=== PATIENT | female | born 1990 | race Two or more races ===

== ENCOUNTER 2025-03-13 23:01 | Emergency (ER) | payer MEDICAID, SELFPAY ==
[2025-03-13 23:03] VITALS: BMI 35.4
[2025-03-13 23:13] VITALS: BP 141/83; PULSE 87; RESP 18; TEMP 37.1; O2SAT 98
--- NOTE | 2025-03-13 23:18 | XR_ITS ---
Examination: OB Transvaginal ultrasound of the pelvis, complete Technique: Transvaginal sonographic images pelvis performed using toussaint scale imaging Exam date and time: March 14, 2025 0115 hours INDICATIONS: Pelvic cramping beginning 2 days ago FINDINGS: Uterus 10.9 cm, intrauterine gestational sac 0.8 cm corresponds to 5 weeks 4 days gestational age No pole, no cardiac activity Right ovary 5.7 cm total flow, 2 simple cysts, the largest 31 mm Left ovary 3.4 cm arterial flow 22 mm cyst IMPRESSION: Empty intrauterine gestational sac corresponding to 5 weeks 4 days gestational age, recommend short term follow-up transvaginal pelvic sonography to confirm viability
[2025-03-13 23:46] LABS: Collection Type, Urine Clean Catch
[2025-03-13 23:49] LABS: Basophils % (Auto) 0 % (0-2.5); Eosinophils # (Auto) 0.2 Thou/mm3 (0.0-0.5); Eosinophils % (Auto) 2 % (0-10); Hematocrit 31.3 % (36.0-46.0); Hemoglobin 11.4 g/dL (12.0-16.0); Immature Granulocytes % (Auto) 0 % (0-0); Immature Granulocytes Auto 0.04 Thou/mm3 (0.00-0.00); Lymphocytes % (Auto) 32 % (10-50); Mean Corpuscular HGB Conc 36.4 g/dl (31.0-37.0); Mean Corpuscular Hemoglobin 31.8 pg (25.0-35.0); Mean Corpuscular Volume 87 fL (80-100); Monocytes # (Auto) 0.7 Thou/mm3 (0.0-0.8); Monocytes % (Auto) 7 % (0-12); Neutrophils # (Auto) 5.6 Thou/mm3 (1.8-7.7); Neutrophils % (Auto) 59 % (37-80); Nucleated Red Blood Cell % 0 /100 WBC (0); Platelet Count 308 Thou/mm3 (140-440); RDW Standard Deviation 39.8 fL (36.4-46.3); Red Blood Count 3.59 Miln/mm3 (4.00-5.20); White Blood Count 9.5 Thou/mm3 (3.6-11.0)
[2025-03-14 00:11] LABS: Alanine Aminotransferase 27 U/L (10-49); Albumin, Serum 4.4 gm/dL (3.5-5.0); Albumin/Globulin Ratio 1.5 (1.2-2.2); Alkaline Phosphatase 53 U/L (46-116); Anion Gap 9 (7-16); Aspartate Amino Transferase 17 U/L (0-34); BUN/Creatinine Ratio 13 Ratio (12-20); Bilirubin,Total 0.3 mg/dL (0.3-1.2); Blood Urea Nitrogen 9 mg/dL (9-23); Calcium 9.2 mg/dL (8.3-10.6); Calcium (Corrected) 9.2 mg/dL (8.5-10.1); Carbon Dioxide 24.1 mMol/L (20.0-31.0); Chloride 104 mMol/L (98-107); Creatinine (Component) 0.7 mg/dL (0.6-1.3); Estimated Creatinine Clearance 122.2 mL/min (>60); Globulin 2.9 gm/dL (2.3-3.5); Glucose 85 mg/dL (74-106); Osmolality,Calculated 271 (275-295); Potassium 4.3 mMol/L (3.4-5.1); Sodium 137 mMol/L (136-145); Total Protein 7.3 gm/dL (5.7-8.2); eGFR > 60 See Note
[2025-03-14 00:14] LABS: Bacteria,Urine 1+; Bilirubin,Urine Negative (Negative); Blood,Urine 1+ (Negative); Clarity,Urine Clear (Clear/Hazy); Color,Urine Lt-Yellow (Lt Yel-Yel); Glucose, Urine Negative (Negative); Ketones,Urine Negative (Negative); Leukocyte Esterase,Urine Positive (Negative); Nitrite,Urine Negative (Negative); Protein,Urine 1+ (Neg - Trace); RBC,Urine 1 /hpf (0-3); Specific Gravity,Urine 1.013 (1.001-1.035); Squamous Epithelial Cell,Urine 6 /hpf (0-5); Urobilinogen,Urine Negative mg/dL (0.0-1.0); WBC,Urine 17 /hpf (0-5)
[2025-03-14 00:54] LABS: Beta HCG,Quantitative 9731 mIU/mL (<5.0)
--- NOTE | 2025-03-14 03:49 | PRELIM_ITS ---
Obstetric ultrasound (transabdominal and transvaginal). March 14, 2025 at 0115 hours Clinical history: Cramping, no bleed; approximately 5 weeks. Technique: Real-time ultrasound was performed using Duplex scanning including arterial inflow, venous outflow, color and spectral Doppler analysis of both ovaries. Comparison: No prior study is available for comparison. Findings: There is an intrauterine gestation sac. No pole or yolk sac is visualized at this time. The mean gestational age is 5 weeks and 4 days (MSD = 0.81 cm). The uterus measures 10.9 x 7.6 x 8.1 cm. The right ovary measures 5.7 x 3.6 x 4.8 cm and contains two large anechoic cysts, the larger measuring 3.1 x 2.6 x 2.6 cm. The left ovary measures 3.3 x 3.4 x 2.9 cm and contains an anechoic cyst measuring 2.2 x 1.9 x 2.2 cm. Both ovaries demonstrate color flow and spectral waveforms on Doppler evaluation. There is no free fluid in the pelvis. Impression: Intrauterine gestation sac without yolk sac or pole. Findings may represent an early intrauterine . Recommend correlation with quantitative beta hCG and close sonographic follow-up. Bilateral ovarian cysts. No sonographic evidence of ovarian torsion is demonstrated on the submitted images. Report Electronically Signed By: John Taveras 03/14/2025 3:47:30 AM [EST]
[2025-03-14 03:53] VITALS: BP 147/83; PULSE 83; RESP 17; TEMP 36.7; O2SAT 100
--- NOTE | 2025-03-14 04:14 | EDNOTE_ITS ---
<Statement entered by Bethany Hylton MD - 03/14/25 05:22> As co-signing physician, I was present and available for consult prn. I concur with the plan and care as documented by the midlevel provider. ED Female Urogenital RME/HPI General Chief complaint: Abdominal Pain Stated complaint: ABD PAIN AND LMP 01/31/25 Time Seen by Provider: 03/13/25 23:17 Arrival date/time: 03/13/25 23:01 35F with no significant PMH presents to ED with 2 days of pelvic cramping, but denies vaginal bleeding and dysuria. Patient is about 5 weeks . Limitations: no limitations Related Data Previous Rx's ?Medication ?Instructions ?Recorded cephalexin 500 mg capsule 500 mg PO BID 7 days #14 cap s 03/14/25 Allergies Allergy/AdvReac Type Severity Reaction Status Date / Time No Known Allergies Allergy Verified 03/13/25 23:03 Review of Systems Review of Systems Systems Reviewed: All systems reviewed, normal except as documented Constitutional Constitutional: Reports system reviewed and no additional complaints, except as documented, Denies fever(s) and Denies headache(s) ENT Ears, Nose, Mouth, and Throat: Denies disequilibrium and Denies headache(s) Cardiovascular Cardiovascular: Reports system reviewed and no additional complaints, except as documented, Denies chest pain and Denies dyspnea Respiratory Respiratory: Reports system reviewed and no additional complaints, except as documented, Denies cough and Denies dyspnea Gastrointestinal Gastrointestinal: Reports system reviewed and no additional complaints, except as documented, Denies abdominal pain, Denies nausea and Denies vomiting Genitourinary Genitourinary: Reports as per HPI and Reports pelvic pain (cramping) Neurologic Neurologic: Reports system reviewed and no additional complaints, except as documented, Denies confusion, Denies disequilibrium and Denies headache(s) Psychiatric Psychiatric: Denies confusion Past Medical History Social History SMOKING STATUS: Never smoker ED Exam General Limitations: Present no limitations General appearance: Present alert and in no apparent distress Head Head exam: Present atraumatic Eye Eye exam: Present normal appearance, PERRL and EOMI ENT ENT exam: Present normal exam, normal oropharynx and mucous membranes moist Neck Neck exam: Present normal inspection, full ROM and trachea midline Chest Chest inspection: Present normal inspection and symmetric chest wall rise Respiratory Respiratory exam: Present normal lung sounds bilaterally Cardiovascular Cardiovascular exam: Present regular rate, normal rhythm and normal heart sounds Abdominal Exam Abdominal exam: Present soft and normal bowel sounds Extremities Exam Extremities exam: Present normal inspection and full ROM Back Exam Back exam: Present normal inspection and full ROM Neurological Exam Neurological exam: Present alert, oriented X3 and CN II-XII intact Psychiatric Psychiatric exam: Present normal affect and normal mood Skin Skin exam: Present warm, dry, intact and normal color Course Quality Measures none Orders Category Date Time Status US OB transvaginal Stat Exams 03/13/25 23:18 Taken Beta HCG,Quantitative Stat Lab 03/13/25 23:36 Completed CBC Stat Lab 03/13/25 23:36 Completed CMP [Comprehensive Metabolic Panel] Stat Lab 03/13/25 23:36 Completed UA [Urinalysis] Stat Lab 03/13/25 23:37 Completed Urine Culture Stat Lab 03/13/25 23:37 Received Vital Signs Vital signs: Vital Signs Temperature 98.8 F 03/13/25 23:13 Pulse Rate 87 03/13/25 23:13 Respiratory Rate 18 03/13/25 23:13 Blood Pressure 141/83 H 03/13/25 23:13 Pulse Oximetry (%) 98 03/13/25 23:13 Oxygen Delivery Method Room Air 03/13/25 23:13 O2 at 98% on RA and WNLs Urogenital - Female MDM Narrative MDM Narrative:: 35F with no significant PMH presents to ED with 2 days of pelvic cramping, but denies vaginal bleeding and dysuria. Patient is about 5 weeks . Physical exam reveals well-appearing female. Patient is afebrile, calm, and alert. US reveals IU gestation, but no FHR. Beta HCG WNLs. CBC and CMP unremarkable. UA contaminated, but will treat given and pelvic pain. 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 Patient data External records reviewed:: None Clinical information provided by:: patient Social determinants that could affect healthcare access:: none Patient has the following chronic illnesses:: none How is presenting disease/condition affected by chronic disease/condition?: no chronic disease Evaluation data The following diagnostics were reviewed and interpreted by me:: lab results and radiology exam(s) Lab and/or radiology exams considered but not ordered:: ordered Interpretation Summary: above Medications / Prescriptions Medications or Prescriptions considered but not ordered:: not ordered Medication administrations:: n/a Consultations Consultation(s) initiated? (list below): No Diagnosis Urogenital Female Differential Diagnosis: urinary tract infection, bacterial vaginosis, trichomoniasis, cervicitis, ovarian cyst, vaginitis, ruptured ovarian cyst, cyst of Bartholin's gland, cystitis, dysmenorrhea and other (miscarriage, pelvic pain ) Most likely diagnosis given after review of the tests above:: pelvic pain Admission Indicated Admission indicated?: not indicated Admission Request Was there a request for admission?: No Disposition Plan Disposition Plan: Discharge Discharge Attestation Discharge Attestation: The patient and all family members were given an opportunity to ask questions and understood the discharge instructions. Discharge instructions specifically effects, indications for sooner follow up or return to the emergency department, and the expected course of current diagnosis. Patient condition: Stable Discharge Plan Plan Patient Disposition: HOME (Self Care) Discharge Disposition comment: Stable Prescriptions/Referrals Prescriptions/Med Rec: New cephalexin 500 mg capsule 500 mg PO BID 7 Days Qty: 14 0RF Referrals: Layla Panda PA-C [Primary Care Provider] - In 1 week Problem List Clinical Impression: Pelvic pain Patient/Caregiver Discharge Instructions Education Materials: ED Pelvic Pain, Unknown Cause Additional Instructions: Please follow-up with PCP/OBGYN within 24-48 hours and return immediately if symptoms worsen. Recommend repeat HCG +/- US in 48-72 hours to see trend. Print Language: [place] Islander Stand Alone Forms: Patient Portal Info Letter DAHLIA/MAIK Supervising Physician VIKTORIYA Supervising Physician: Dr. Hylton
== END 2025-03-14 03:58 | disposition home or self-care (01) ==
PROVIDERS: Physician Assistant; Emergency Provider Emergency Medicine; PCP Specialist
DX: O26.891 Other specified pregnancy related conditions, first trimester (principal); R10.2 Pelvic and perineal pain; Z3A.01 Less than 8 weeks gestation of pregnancy
CPT/HCPCS: 36415; 76817; 80053; 81001; 84702; 85025; 87086; 99284

== ENCOUNTER 2025-08-04 21:45 | Emergency (ER) | payer MEDICAID, SELFPAY ==
[2025-08-04 21:46] VITALS: BMI 37.2
[2025-08-04 22:13] VITALS: BP 171/101; PULSE 79; RESP 20; TEMP 37.1; O2SAT 99
--- NOTE | 2025-08-04 23:01 | PD.EDDENTL ---
ED Dental RME/HPI General Chief complaint: Dental/Oral/Throat Stated complaint: DENTAL PAIN Time Seen by Provider: 08/04/25 22:02 Source: patient, RN notes reviewed and old records reviewed Arrival date/time: 08/04/25 21:45 Mode of arrival: ambulatory Limitations: no limitations RME / HPI RME / HPI Narrative: 35yof presents to ED for left upper toothache x3-4 days. No fever or facial swelling reported. Patient has taken Tylenol with mild relief. Patient is 26 weeks OB. Reports good movement, no pelvic pain or vaginal bleeding. Patient has elevated blood pressure in ED. She reports she forgot to take her labetalol today. No headache, vision changes or abdominal pain reported. Related Data Previous Rx's ?Medication ?Instructions ?Recorded acetaminophen 500 mg tablet 1,000 mg (2 x 500 mg) PO Q6H PRN 08/05/25 (Tylenol Extra Strength) pain #30 tabs amoxicillin 875 mg tablet 875 mg PO BID 10 days #20 tabs 08/05/25 chlorhexidine gluconate 0.12 % 15 ml buccal BID #300 mL 08/05/25 mouthwash (Peridex) Allergies Allergy/AdvReac Type Severity Reaction Status Date / Time No Known Allergies Allergy Verified 08/04/25 21:45 Review of Systems Review of Systems Systems Reviewed: All systems reviewed, normal except as documented Constitutional Constitutional: Denies chills, Denies fever(s) and Denies headache(s) Eyes Eyes: Denies blurry vision and Denies loss of vision ENT Ears, Nose, Mouth, and Throat: Reports dental pain, Denies dizziness and Denies headache(s) Cardiovascular Cardiovascular: Denies chest pain and Denies dyspnea Respiratory Respiratory: Denies dyspnea Gastrointestinal Gastrointestinal: Denies nausea and Denies vomiting Neurologic Neurologic: Denies dizziness, Denies headache(s) and Denies loss of vision Past Medical History Past Medical History CARDIAC: Positive Hypertension GASTROINTESTINAL: Positive Obesity ENDOCRINE: Positive Diabetes Mellitus Type 2 Surgical History OTHER SURGICAL HX: denies pshx ED Exam General Limitations: Present no limitations General appearance: Present alert and in no apparent distress Head Head exam: Present atraumatic and normocephalic Eye Eye exam: Present normal appearance, PERRL and EOMI ENT ENT exam: Present normal oropharynx, mucous membranes moist and other (Generalized dental caries. Fractured left upper first molar. No gingival erythema/swelling. No facial swelling or trismus) Neck Neck exam: Present normal inspection and full ROM; Absent meningismus Chest Chest inspection: Present normal inspection and symmetric chest wall rise Respiratory Respiratory exam: Present normal lung sounds bilaterally; Absent respiratory distress Cardiovascular Cardiovascular exam: Present regular rate and normal rhythm Extremities Exam Extremities exam: Present normal inspection and full ROM Neurological Exam Neurological exam: Present alert and oriented X3 Psychiatric Psychiatric exam: Present normal affect and normal mood Skin Skin exam: Present warm, dry, intact and normal color Course Quality Measures none Orders Category Date Time Status HYDROcodone/APAP 10/325 [[place] 10/325] Med 08/04/25 23:01 Discontinued 1 tab PO X1 ONE Labetalol Tab [Trandate Tab] Med 08/04/25 23:29 Discontinued 200 mg PO X1 ONE Vital Signs Vital signs: Vital Signs Temperature 98.8 F 08/04/25 22:13 Pulse Rate 79 08/04/25 22:13 Respiratory Rate 20 08/04/25 22:13 Blood Pressure 171/101 H 08/04/25 22:13 Pulse Oximetry (%) 99 08/04/25 22:13 Oxygen Delivery Method Room Air 08/04/25 22:13 Dental / Oral MDM Narrative MDM Narrative:: 35yof presents to ED for left upper toothache x3-4 days. No fever or facial swelling reported. Patient has taken Tylenol with mild relief. Patient is 26 weeks OB. Reports good movement, no pelvic pain or vaginal bleeding. Patient has elevated blood pressure in ED. She reports she forgot to take her labetalol today. No headache, vision changes or abdominal pain reported. Will treat for dental pain and possible dental infection. Recheck of blood pressure is downtrending after pain medication and labetalol. Suspect BP elevation mostly related to toothache. Patient states her BPs are typically well-controlled. Instructed patient to take another 100mg labetalol when she gets home. Patient has follow-up with her OB, Dr. Donald, later today. Patient denies headache, dizziness, vision changes or nausea/vomiting. Discussed the dangers of high blood pressure during . Encouraged compliance with meds. Stable for discharge, RTED precautions given. Patient data External records reviewed:: [facility] previous records (03/14/25 ED visit for pelvic pain) Clinical information provided by:: patient Social determinants that could affect healthcare access:: other (specify) (Unemployment) Patient has the following chronic illnesses:: Obesity, hypertension How is presenting disease/condition affected by chronic disease/condition?: exacerbated by Evaluation data The following diagnostics were reviewed and interpreted by me:: other (specify) (None) Lab and/or radiology exams considered but not ordered:: None Interpretation Summary: na Medications / Prescriptions Medications or Prescriptions considered but not ordered:: None Medication administrations:: Medication Administration History Discontinued Medications Hydrocodone Bitart/Acetaminophen (Hydrocodone/Apap 10/325 Tab) 1 tab PO X1 ONE Stop: 08/04/25 23:02 Last Admin: 08/04/25 23:17 Dose: 1 tab Documented By: YANETH Labetalol HCl (Labetalol 100 Mg Tablet) 200 mg PO X1 ONE Stop: 08/04/25 23:30 Last Admin: 08/04/25 23:39 Dose: 200 mg Documented By: BRAD Above medications administered in ED Consultations Consultation(s) initiated? (list below): No Diagnosis Dental Differential Diagnosis: gingival abscess, dental caries, toothache, dental abscess and fracture of tooth Most likely diagnosis given after review of the tests above:: Dental pain, dental caries Admission Indicated Admission indicated?: not indicated Admission Request Was there a request for admission?: No Disposition Plan Disposition Plan: Discharge Discharge Attestation Discharge Attestation: The patient and all family members were given an opportunity to ask questions and understood the discharge instructions. Discharge instructions specifically effects, indications for sooner follow up or return to the emergency department, and the expected course of current diagnosis. Patient condition: Stable Discharge Plan Plan Patient Disposition: HOME (Self Care) Patient condition on transfer: Stable Prescriptions/Referrals Prescriptions/Med Rec: New acetaminophen [Tylenol Extra Strength] 500 mg tablet 1,000 mg PO Q6H PRN (Reason: pain) Qty: 30 0RF amoxicillin 875 mg tablet 875 mg PO BID 10 Days Qty: 20 0RF chlorhexidine gluconate [Peridex] 0.12 % mouthwash 15 ml buccal BID Qty: 300 0RF Referrals: Layla Panda PA-C [Primary Care Provider] - In 1 week Problem List Clinical Impression: Toothache, Elevated blood pressure reading Patient/Caregiver Discharge Instructions Education Materials: ED Dental Pain Print Language: Azeri Stand Alone Forms: Mackenzie Award Info., Patient Portal Info Letter PA/THIRD LOADER Supervising Physician DAHLIA/THIRD LOADER Supervising Physician: Jeb
[2025-08-04 23:19] VITALS: BP 165/105; PULSE 76; RESP 18; TEMP 36.7; O2SAT 99
[2025-08-04 23:39] VITALS: BP 182/105; PULSE 85
[2025-08-04] MEDS: LABETALOL 100 MG TABLET 200 MG PO (23:39)
[2025-08-05 01:01] VITALS: BP 164/93; PULSE 84; RESP 18; O2SAT 97
== END 2025-08-05 01:12 | disposition home or self-care (01) ==
PROVIDERS: Emergency Provider Emergency Medicine; PCP Specialist
DX: K08.89 Other specified disorders of teeth and supporting structures (principal); R03.0 Elevated blood-pressure reading, without diagnosis of hypertension
CPT/HCPCS: 99282; A9270

== ENCOUNTER 2025-09-29 08:14 | Outpatient (AMB) | payer MEDICAID, SELFPAY ==
--- NOTE | 2025-09-29 08:44 | OBCLNT_ITS ---
Vital Signs 09/29/25 08:45 Height 1.6 m Height Method Stated Weight 96.729 kg Weight Measurement Method Standing Scale BMI 37.8 BP 129/84 Blood Pressure Source Automatic Cuff Blood Pressure Location Left Upper Arm Position Sitting Respiration 16 Pulse 76 Pulse Source Monitor Temp 97.8 F Temp Source Oral Pulse Oximetry (%) 98 Oxygen Delivery Method Room Air Allergies/Home Meds Allergies & Medications Allergies No Known Allergies Allergy (Verified 09/29/25 08:56) Medication Reconciliation aspirin 81 mg tablet 81 mg PO QDAY 09/29/25 [History Confirmed 09/29/25] insulin glargine 100 unit/mL subcutaneous solution (Lantus U-100 Insulin) 20 unit subcut QDAY 09/29/25 [History Confirmed 09/29/25] insulin lispro 100 unit/mL subcutaneous pen (Humalog KwikPen (U-100) Insulin) 5 unit subcut TID 09/29/25 [History Confirmed 09/29/25] labetalol 100 mg tablet 100 mg PO BID 09/29/25 [History Confirmed 09/29/25] metformin 500 mg tablet 500 mg PO BID 09/29/25 [History Confirmed 09/29/25] Intake Visit Data Collection New Patient or Established: Established Patient (seen at [facility] within 3 years) Reason for Visit:: TRANSFER/ INITIAL CARE Seen by Clinical Staff ONLY (RN/MA): No Isotope Hydrologist Required: No Do You Feel Safe at Home: Yes Authorities Contacted: N/A PCP or OBGYN visit in last 3 months: Yes Hx Now: Yes Are you currently on any form of Control: No Last menstrual period: 01/31/25 Pain Present Currently: No Pain Scale Used: Rodriguez-Rincon/Numerical Pain scale:: 0 Smoking Status Smoking Status: Never smoker Immunizations Flu Vaccine in the Last 12 Months: Yes Flu Vaccine Exclusion Criteria: Already Received Questionnaires Covid-19 Vaccine Questionnaire Has patient been vacinated for Covid-19 Have you been vacinated for Covid-19: Yes PHQ-9 PHQ-2 Over the last 2 weeks, how often have you been bothered by any of the following problems? 1. Little interest or pleasure in doing things: not at all 2. Feeling down, depressed, or hopeless: not at all Total score: 0 PHQ-9 3. Trouble falling or staying asleep, or sleeping too much: Not at all 4. Feeling tired or having little energy: Not at all 5. Poor appetite or overeating: Not at all 6. Feeling bad about yourself - or that you are a failure or have let yourself or your family down: Not at all 7. Trouble concentrating on things, such as reading the newspaper or watching television: Not at all 8. Moving or speaking so slowly that other people could have noticed? - Or the opposite - being so fidgety or restless that you have been moving around a lot more than usual: not at all 9. Thoughts that you would be better off or of hurting yourself in some way: Not at all Total score: 0 Source: Developed by Drs. Thiago Hartman, Maira Garcia, Rogelio Mccray and colleagues, with an educational leobardo from [employer]. Depression screen completed yes Social History Living Situation History Marital Status: Lives With: Family Housing: House Tobacco History Smoking Status: Never smoker Second Hand Smoke Exposure: No Alcohol History Alcohol Intake: Never Domestic Abuse History Do You Feel Safe at Home: Yes History of Present Illness HPI Narrative 35-year-old 1 para 0 for OB. Patient is a transfer from Dr. Urbina's office with records. Last. January 31, 2025. Estimated due date based on LMP November 07, 2025. Patient had an ultrasound May 20, 2025. She was 16 weeks at that time and that had an EDC of November 03, 2025. So patient's EDC by LMP is more correct putting her due November 07, 2025. Patient also had several anatomy scans and a echo at [facility]. First ultrasound was at 24 weeks 6 days. And that was July 24, 2025. So this confirm dates and showed the baby was growing in the 28th percentile. Anatomy was normal. Patient had a echo because of diabetes and that was August 13 and the echo was read as a normal echo and no cardiac arrhythmias shown. And then patient's last ultrasound was August 28 and that 1 was at 29 weeks 6 that showed normal growth and 26 percentile and normal LAKSHMI. The last ultrasound for this patient was September 25. Patient was 33 weeks 6 days on that date and showed good growth at 33 percentile with normal LAKSHMI. Patient denies any social habits. Denies surgeries. She has a history of hypertension and she is taking labetalol 100 mg p.o. 3 times daily for that. She also has anemia and she is ta [facility]. Patient has type 2 diabetes and she is on insulin. Denies leaking, bleeding, contractions. Patient states that her A1c is are stable. The majority of her fasting A1c's have been under 100. She does have elevated A1c's about 7-8 times per month where the A1c is after eating or over 190. 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 Patient is a transfer from Dr. Urbina's office with records. Patient has a history of hypertension on labetalol 100 3 times daily. And she also has type 2 diabetes. She uses insulin to control her sugars. She is using 12 units after each meal. And then she has a longer acting that she is taking 45 units each night before bed. She reports that she is trying to keep her sugars under control with diet and her insulin. The fasting blood sugars she said are usually below 100 but she does have fastings that are over 100 as well. And then her postprandial sugars after meals about 75% are at goal. Reports movement. Denies contractions. Denies leaking. Denies bleeding. And fetus is active Discussed preter m labor precautions and kick count twice a day. I reviewed again GDM diet with patient importance of complying. I talked her about walking 40 minutes a day and 10 minutes after each meal. She is to continue her prenatals and her iron. We discussed iron foods with the patient. And I talked about her sugars. To continue logging them and and bring them with her to her next appointment. Continue her insulin as directed. We scheduled a bibiweekly NST BPP's. Patient scheduled with OB for management bi weekly Menstrual History Menstrual reliability: definite Flow: normal Menstrual regularity: irregular Monthly: No Age at menarche: 14 On control pills at conception: No Associated symptoms (LMP): Denies amenorrhea, nausea, vomiting, fatigue, breast tenderness, urinary frequency, irritability, bloating or other OB History : 1 # of Living Children: 0 Infection History & Risk Evaluation History of STDs: [place]lamydia ([place] 2019) Genetic Screening & History Genetic Screening/Teratology Counseling - Includes patient, baby's father, or anyone in either family with: 1. Patient's age 35 years or older as of estimated date of delivery: No 2. Thalassemia (Sami, Lao, Mediterranean, or Background); MCV less than 80: No 3. Neural Tube Defect (Meningomyelocele, Spina Bifida, or Anencephaly): No 4. Congenital Heart Defect: No 5. Down Syndrome: No 6. Rony-Sachs (Ashkenazi Faith, Cajun, [place]): No 7. Rogerio Disease (Ashkenazi Faith): No 8. Familial Dysautonomia (Ashkenazi Faith): No 9. Sickle Cell Disease or Trait (): No 10. Hemophilia or other blood disorders: No 11. Muscular Dystrophy: No 12. Cystic Fibrosis: No 13. [place]'s Chorea: No 14. Mental Retardation/Autism: No 15. Other inherited genetic or chromosomal disorder: No 16. Maternal Metabolic Disorder (EG,TYPE 1 Diabetes, PKU): No 17. Patient or baby's father had a child with defects not listed above: No 18. Recurrent loss or a stillbirth: No 19. Medications (including supplements, vitamins, herbs or otc drugs)/illicit/ recreational drugs/alcohol since last menstrual period: No 20. Any other: No Infection History 1. Live with someone with TB or exposed to TB: No 2. Rash or viral illness since last menstrual period: No 3. Hepatitis B,C: No 4. History of STD: chlamydia ([place] 2019) Other (see comments) Source: [employer] Review of Systems Review of Systems Systems Reviewed: All systems reviewed, normal except as documented Constitutional Constitutional: Denies fatigue Gastrointestinal Gastrointestinal: Denies bloating, Denies nausea and Denies vomiting Genitourinary Genitourinary: Denies amenorrhea and Denies urinary frequency Psychiatric Psychiatric: Denies irritability Endocrine Endocrine: Denies fatigue Exam General Limitations: no limitations General Appearance: alert, in no apparent distress, comfortable, cooperative, healthy appearing, well developed and well groomed Head Head exam: atraumatic, normocephalic and normal inspection ENT ENT exam: Present normal exam, normal oropharynx and mucous membranes moist Chest Chest inspection: Present normal inspection and symmetric chest wall rise Resp Respiratory exam: Present normal lung sounds bilaterally Card Cardiovascular exam: Present regular rate, normal rhythm and normal heart sounds Abdominal Abdominal exam: Present soft and normal bowel sounds Psych Psychiatric exam: Present normal affect and normal mood Office Procedures OBC Clinic LOC & Office Proc's Nursing/Assessment Patient Status: Established Patient OB Clinic Nursing Assessment: Medication Reconciliation, Update PMH in EMR and Vital Signs OB Clinic Coordination of Care: Complex Care and Chronic Disease 1-5, Consent,records obtained, informed consent, Education Simp Pt/Fam, 1 Ins Authorization, Lab and Imaging orders, Results/Orders obtained and Staff clarify orders Special Needs: Heart tones Established Patient Charge Established Patient Point Assignment: 150 Established Patient Point Charge: EP Level 4 (120-155) Assessment & Plan Diagnosis / Problem List (1) Encounter for supervision of high risk in third trimester, antepartum: Status: Acute (2) Diabetes in : Status: Acute Qualifiers: Diabetes in type: pre-existing, type 2 Trimester: third trimester Qualified Code(s): O24.113 - Pre-existing type 2 diabetes mellitus, in , third trimester (3) Hypertension affecting : Status: Acute Qualifiers: Trimester: first trimester Qualified Code(s): O16.1 - Unspecified maternal hypertension, first trimester Plan Schedule biweekly NST BPP. We did an NST and BPP today. Kick count twice a day. I reviewed diet and compliance with logging her sugars. Patient to bring her glucose logs with her to her next appointment. Discussed labor precautions. Continue GDM diet discussed labor precautions. Return in a week with OB Additional Plan Follow Up: 1 Week (obc)
[2025-09-29 08:45] VITALS: BP 129/84; PULSE 76; RESP 16; TEMP 36.6; O2SAT 98; BMI 37.8
== END 2025-09-29 09:26 | disposition home or self-care (01) ==
LOC: HODSOBC 08:14
PROVIDERS: PCP Specialist; Referring Provider Specialist; Supervising Provider Advanced Practice Midwife; Visit Provider Advanced Practice Midwife
DX: O09.893 Supervision of other high risk pregnancies, third trimester (principal); O24.113 Pre-existing type 2 diabetes mellitus, in pregnancy, third trimester; Z3A.34 34 weeks gestation of pregnancy; Z79.4 Long term (current) use of insulin; O10.913 Unspecified pre-existing hypertension complicating pregnancy, third trimester; Z79.899 Other long term (current) drug therapy; Z79.84 Long term (current) use of oral hypoglycemic drugs
CPT/HCPCS: 99214; G0463

== ENCOUNTER 2025-10-13 13:20 | Outpatient (AMB) | payer MEDICAID, SELFPAY ==
[2025-10-13 13:36] VITALS: BP 147/88; PULSE 82; RESP 16; TEMP 36.6; O2SAT 98; BMI 38.6
--- NOTE | 2025-10-13 13:36 | OBCLNT_ITS ---
Vital Signs 10/13/25 13:36 Height 1.6 m Height Method Stated Weight 98.94 kg Weight Measurement Method Standing Scale BMI 38.6 BP 147/88 H Blood Pressure Source Automatic Cuff Blood Pressure Location Left Upper Arm Position Sitting Respiration 16 Pulse 82 Pulse Source Monitor Temp 97.8 F Temp Source Oral Pulse Oximetry (%) 98 Oxygen Delivery Method Room Air Allergies/Home Meds Allergies & Medications Allergies No Known Allergies Allergy (Verified 10/13/25 13:37) Medication Reconciliation aspirin 81 mg tablet 81 mg PO QDAY 09/29/25 [History Confirmed 10/13/25] insulin glargine 100 unit/mL subcutaneous solution (Lantus U-100 Insulin) 20 unit subcut QDAY 09/29/25 [History Confirmed 10/13/25] insulin lispro 100 unit/mL subcutaneous pen (Humalog KwikPen (U-100) Insulin) 5 unit subcut TID 09/29/25 [History Confirmed 10/13/25] labetalol 100 mg tablet 100 mg PO BID 09/29/25 [History Confirmed 10/13/25] metformin 500 mg tablet 500 mg PO BID 09/29/25 [History Confirmed 10/13/25] Immunizations Immunizations Flu Vaccine in the Last 12 Months: No Flu Vaccine Exclusion Criteria: Refused by Patient Care OB Visit Log OB Flowsheet Initial Weight: Not Recorded Date -?-?-?-?-?-?-?-?-?-?-?-?- EGA Weight BP Alb Glu CTX Pres Fundal ht FHR Mov Dilation Station Effacement Hx Notes Visit Note 09/29/25 -?-?-?-?-?-?-?-?-?-?-?-?- 34w 3d 96.729 kg 129/84 absent cephalic 34 145 active At 34 weeks 5 days. Patient is a transfer from Dr. Urbina's office with records. Patient has a history of hypertension on labetalol 100 3 times daily. And she also has type 2 diabetes. She uses insulin to control her sugars. She is using 12 units after each meal. And then she has a longer acting that she is taking 45 units each night before bed. She reports that she is trying to keep her sugars under control with diet and her insulin. The fasting blood sugars she said are usually below 100 but she does have fastings that are over 100 as well. And then her postprandial sugars after meals about 75% are at goal. Reports movement. Denies contractions. Denies leaking. Denies bleeding. And fetus is active Discussed preter m labor precautions and kick count twice a day. I reviewed again GDM diet with patient importance of complying. I talked her about walking 40 minutes a day and 10 minutes after each meal. She is to continue her prenatals and her iron. We discussed iron foods with the patient. And I talked about her sugars. To continue logging them and and bring them with her to her next appointment. Continue her insulin as directed. We scheduled a bibiweekly NST BPP's. Patient scheduled with OB for management bi weekly 10/13/25 -?-?-?-?--?-?-?-?-?-?-?-?- 36w 3d 98.94 kg 147/88 occasional cephalic 36 154 active 0.5 -3 50 Patient has chronic hypertension on labetalol 100 mg 3 times daily. She has been diabetic on metformin for years but is on insulin this . 25 units nightly and 12 with each meal. She has a scheduled induction of labor 10/31/[address] [facility]. Group B strep culture done today. YA Calculator Estimated Delivery Date Method Current WG Current Estimate 11/07/25 LMP (Certain) 36w 3d Other Estimates 11/04/25 Ultrasound #1 36w 6d 11/07/25 Ultrasound #2 36w 3d 11/07/25 Manual 36w 3d final ya: 10/14 05/07 Notes Visit Date: 10/13/25 Last Updated by: Erika Conrad (OB Clinic)MD Transfer of care Dr. Donald first visit here at 34 weeks. NST BPP today. Will also check an ultrasound for size. Patient's blood pressures in the 140s over 80s so we will check preeclamptic labs over at the hospital. Today patient has no complaints specifically no contractions loss of fluid she reports good movement no visual changes no headaches. Urine dip in the office 2+ protein. Visit Date: 09/29/25 Last Updated by: Glendy Barros CNM 33 G1p). lmp: 01/31/25. EDC: 11/07/25. HX of: anemia. CHTN: labetolol 100 TID, type 2 DM On insulin. OB panel: A-/ABS- (Rhogam givn 08/19/25). RPR::NR, rub imm, hbsag-,hiv-,hc-, GC/CT-, + CF carrier, AFP-,NIPT-, SMA-, 9.8/29.8 Office Procedures OBC Clinic LOC & Office Proc's Nursing/Assessment Patient Status: Established Patient OB Clinic Nursing Assessment: Medication Reconciliation, Update PMH in EMR and Vital Signs OB Clinic Coordination of Care: Complex Care and Chronic Disease 1-5, Consent,records obtained, informed consent, Education Simp Pt/Fam, 1 Ins Authorization, Lab and Imaging orders, Results/Orders obtained and Staff clarify orders Special Needs: Heart tones Miscellaneous Interventions: Blood/Urine Collection and Culture Specimen Collection Established Patient Charge Established Patient Point Assignment: 195 Established Patient Point Charge: EP Level 5 (160-above) Assessment & Plan Diagnosis / Problem List (1) Hypertension affecting : Status: Acute Qualifiers: Trimester: third trimester Qualified Code(s): O16.3 - Unspecified maternal hypertension, third trimester Plan: Induction of labor scheduled on L&D 10/31/[address] Ana Maria Conrad Assessment and Plan: chronic hypertension on labetalol 100 3 times daily. 2+ protein in urine. To L&D rule out preeclampsia (2) Diabetes in : Status: Acute Qualifiers: Diabetes in type: pre-existing, type 2 Trimester: third trimester Qualified Code(s): O24.113 - Pre-existing type 2 diabetes mellitus, in , third trimester Plan: Continue insulin dose and checking sugars (3) Encounter for supervision of high risk in third trimester, antepartum: Status: Acute Assessment and Plan: Group B strep done (4) Rh negative status during : Status: Acute Qualifiers: Trimester: third trimester Qualified Code(s): O26.893 - Other specified related conditions, third trimester; Z67.91 - Unspecified blood type, Rh negative Plan: Patient was given RhoGAM at Dr. Donald office. Additional Plan Follow Up: 1 Week
== END 2025-10-13 14:16 | disposition home or self-care (01) ==
PROVIDERS: Supervising Provider Obstetrics & Gynecology; Visit Provider Obstetrics & Gynecology
DX: O09.893 Supervision of other high risk pregnancies, third trimester (principal); O10.913 Unspecified pre-existing hypertension complicating pregnancy, third trimester; O24.113 Pre-existing type 2 diabetes mellitus, in pregnancy, third trimester; Z3A.36 36 weeks gestation of pregnancy; Z67.91 Unspecified blood type, Rh negative; Z36.85 Encounter for antenatal screening for Streptococcus B; Z28.21 Immunization not carried out because of patient refusal; Z79.4 Long term (current) use of insulin; Z79.899 Other long term (current) drug therapy
CPT/HCPCS: 99215; G0463

== ENCOUNTER 2025-10-16 15:34 | Outpatient (RCR) | payer MEDICAID, SELFPAY ==
--- NOTE | 2025-10-13 16:04 | XR_ITS ---
Examination: Biophysical profile, ultrasound Date and time of exam: October 13, 2025, 1620 hours INDICATIONS: Diagnosis gestational diabetes, diagnosis hypertension Technique: Multiple transabdominal sonographic images of the pelvis abdomen obtained. Attention is directed to the breathing movement, gross body movement, amniotic fluid volume and tone. Findings: Amniotic fluid index 9.4 cm Total biophysical profile is 8 of 8. breathing movement is 2. Gross body movement is 2. tone is 2. Qualitative amniotic fluid volume is 2 Impression: Biophysical profile is 8 of 8.
[2025-10-13 16:35] VITALS: BP 119/76; PULSE 105; RESP 16; TEMP 36.9
[2025-10-13 17:20] LABS: Collection Type, Urine Clean Catch
[2025-10-13 17:40] LABS: Creatinine,Random Urine 45 mg/dL (30-125); Protein Total, Random Urine 85 mg/dL (1-14)
[2025-10-13 17:51] LABS: Bacteria,Urine 1+; Bilirubin,Urine Negative (Negative); Blood,Urine 1+ (Negative); Clarity,Urine Clear (Clear/Hazy); Color,Urine Lt-Yellow (Lt Yel-Yel); Glucose, Urine Negative (Negative); Ketones,Urine Negative (Negative); Leukocyte Esterase,Urine Negative (Negative); Nitrite,Urine Negative (Negative); PH,Urine 6.0 (5.0-7.0); Protein,Urine 1+ (Neg - Trace); RBC,Urine < 1 /hpf (0-3); Specific Gravity,Urine 1.007 (1.001-1.035); Squamous Epithelial Cell,Urine 7 /hpf (0-5); Urobilinogen,Urine Negative mg/dL (0.0-1.0); WBC,Urine 4 /hpf (0-5)
--- NOTE | 2025-10-16 07:26 | XR_ITS ---
Examination: Complete OB ultrasound greater than 14 weeks Date and time of exam: October 16, 2025, 1605 hours INDICATIONS: Diagnosis maternal hypertension, unknown weight Findings: Viable intrauterine single fetus with single amniotic sac presentation cephalic Cardiac motion 138 bpm Placenta anterior grade 2 Umbilical cord insertion seen Amniotic fluid index 13.1 cm spine maternal right Cervix 4.5 cm Ovaries obscured by bowel gas. Composite estimated gestational age based on BPD, head circumference, abdominal circumference, femur length is 36 weeks 2 days Estimated weight 2958 g. Survey of intracranial anatomy, spinal anatomy, abdominal anatomy, four-chamber heart performed with no abnormalities identified. Impression: Viable intrauterine gestation cephalic presentation Estimated weight 2958 g.
--- NOTE | 2025-10-16 15:50 | XR_ITS ---
Examination: Biophysical profile, ultrasound Date and time of exam: October 16, 2025, 1557 hours INDICATIONS: Diagnosis maternal hypertension Technique: Multiple transabdominal sonographic images of the pelvis abdomen obtained. Attention is directed to the breathing movement, gross body movement, amniotic fluid volume and tone. Findings: Amniotic fluid index 17.5 cm Total biophysical profile is 8 of 8. breathing movement is 2. Gross body movement is 2. tone is 2. Qualitative amniotic fluid volume is 2 Impression: Biophysical profile is 8 of 8.
[2025-10-16 16:48] VITALS: BP 118/73; PULSE 92; RESP 16
[2025-10-16 17:56] LABS: Basophils # (Auto) 0.0 Thou/mm3 (0.0-0.2); Basophils % (Auto) 0 % (0-2.5); Eosinophils # (Auto) 0.1 Thou/mm3 (0.0-0.5); Eosinophils % (Auto) 1 % (0-10); Hematocrit 30.7 % (36.0-46.0); Hemoglobin 10.7 g/dL (12.0-16.0); Immature Granulocytes Auto 0.05 Thou/mm3 (0.00-0.00); Lymphocytes # (Auto) 1.5 Thou/mm3 (1.0-4.8); Lymphocytes % (Auto) 17 % (10-50); Mean Corpuscular HGB Conc 34.9 g/dl (31.0-37.0); Mean Corpuscular Hemoglobin 31.4 pg (25.0-35.0); Mean Corpuscular Volume 90 fL (80-100); Monocytes # (Auto) 0.5 Thou/mm3 (0.0-0.8); Monocytes % (Auto) 6 % (0-12); Neutrophils # (Auto) 6.7 Thou/mm3 (1.8-7.7); Neutrophils % (Auto) 76 % (37-80); Nucleated Red Blood Cell # 0.00 Thou/mm3 (0.00-0.00); Nucleated Red Blood Cell % 0 /100 WBC (0); Platelet Count 235 Thou/mm3 (140-440); RDW Standard Deviation 45.8 fL (36.4-46.3); Red Blood Count 3.41 Miln/mm3 (4.00-5.20); White Blood Count 8.9 Thou/mm3 (3.6-11.0)
[2025-10-16 18:10] LABS: Creatinine,Random Urine 110 mg/dL (30-125); Protein Total, Random Urine 145 mg/dL (1-14)
[2025-10-16 18:23] LABS: Alanine Aminotransferase < 7 U/L (10-49); Albumin, Serum 3.9 gm/dL (3.5-5.0); Albumin/Globulin Ratio 1.4 (1.2-2.2); Alkaline Phosphatase 86 U/L (46-116); Anion Gap 10 (7-16); Aspartate Amino Transferase 14 U/L (0-34); BUN/Creatinine Ratio 10 Ratio (12-20); Bilirubin,Total 0.3 mg/dL (0.3-1.2); Blood Urea Nitrogen 7 mg/dL (9-23); Calcium 8.7 mg/dL (8.3-10.6); Calcium (Corrected) 8.8 mg/dL (8.5-10.1); Carbon Dioxide 19.1 mMol/L (20.0-31.0); Chloride 108 mMol/L (98-107); Creatinine (Component) 0.7 mg/dL (0.6-1.3); Globulin 2.7 gm/dL (2.3-3.5); Glucose 122 mg/dL (74-106); Osmolality,Calculated 272 (275-295); Potassium 3.6 mMol/L (3.4-5.1); Sodium 137 mMol/L (136-145); Total Protein 6.6 gm/dL (5.7-8.2); eGFR > 60 See Note
== END 2025-10-16 23:59 | disposition home or self-care (01) ==
LOC: S4S1 15:34
PROVIDERS: Obstetrics & Gynecology; Referring Provider Advanced Practice Midwife; Visit Provider Advanced Practice Midwife
DX: O24.113 Pre-existing type 2 diabetes mellitus, in pregnancy, third trimester (principal); O16.3 Unspecified maternal hypertension, third trimester; O09.93 Supervision of high risk pregnancy, unspecified, third trimester; E11.9 Type 2 diabetes mellitus without complications; Z79.4 Long term (current) use of insulin; Z79.84 Long term (current) use of oral hypoglycemic drugs; Z3A.36 36 weeks gestation of pregnancy
CPT/HCPCS: 36415; 59025; 76805; 76819; 80053; 81001; 82570; 84156; 85025; J1100; J1885; J2274; J2371; J2405; J2590; J3010; J3490; J1805; J2270

== ENCOUNTER 2025-10-19 09:42 | Inpatient (IN) | payer MEDICAID, SELFPAY ==
--- NOTE | 2025-10-16 18:06 | ESPR_ITS ---
Documentation for date of: 10/16/25 OB Labor Progress Note Assessment and Plan Comments: Triage Note Eri is a 35yo with SIUP at 36&6wk presenting to L&D for scheduled NST antepartum testing and growth scan per Dr. Conrad. Patient has hx of T2DM on metformin prior to , now treated with insulin as well as CHTN, taking labetalol. At last visit on 10/13, patient had urine p:c 1.9. She notes no painful/regular ctx, no vaginal bleeding, no lof. Normal movement. She denies headache, vision changes and RUQ pain. ROS negative other than what was described above. BPs: 118/73, 142/88, 135/80, 143/80, 149/81, 151/85 Afebrile General: well developed, well nourished, no acute distress Cardiac: normal heart rate Lungs: breathing without distress Abdomen: soft, gravid, non-tender, no rebound or guarding Extremities: trace edema BLE NST: Reactive, +accels, no decels, mod milagros [place]: no regular ctx pattern Labs: Hgb 10.7 Plt 235 serum creat 0.7 AST/ALT wnl urine prot:creat 1.3 (from 1.9 on 10/13) Radiology: Examination: Complete OB ultrasound greater than 14 weeks Date and time of exam: October 16, 2025, 1605 hours INDICATIONS: Diagnosis maternal hypertension, unknown weight Findings: Viable intrauterine single fetus with single amniotic sac presentation cephalic Cardiac motion 138 bpm Placenta anterior grade 2 Umbilical cord insertion seen Amniotic fluid index 13.1 cm spine maternal right Cervix 4.5 cm Ovaries obscured by bowel gas. Composite estimated gestational age based on BPD, head circumference, abdominal circumference, femur length is 36 weeks 2 days Estimated weight 2958 g. Survey of intracranial anatomy, spinal anatomy, abdominal anatomy, four-chamber heart performed with no abnormalities identified. Impression: Viable intrauterine gestation cephalic presentation Estimated weight 2958 g. -- Examination: Biophysical profile, ultrasound Date and time of exam: October 16, 2025, 1557 hours INDICATIONS: Diagnosis maternal hypertension Technique: Multiple transabdominal sonographic images of the pelvis abdomen obtained. Attention is directed to the breathing movement, gross body movement, amniotic fluid volume and tone. Findings: Amniotic fluid index 17.5 cm Total biophysical profile is 8 of 8. breathing movement is 2. Gross body movement is 2. tone is 2. Qualitative amniotic fluid volume is 2 Impression: Biophysical profile is 8 of 8. Assessment: Eri is a 35yo with SIUP at 36&6wk with suspected pre- eclampsia withOUT severe features super-imposed on CHTN based on urine p:c 1.3 to 1.9. Mild range bp's, benign exam. Reassuring status. Plan: -Patient and wanted to leave before labs were resulted- cited a family emergency. They signed out AMA after being counseled on risks. -Once labs resulted, I called Eri and explained the findings and my recommendation for IOL at 37wk for pre-eclampsia withOUT severe features. I discussed the diagnosis at length and the reasons for IOL. I answered all of her questions. First available time slot is on 10/18, patient will be 37w1d. spoke with Lupe in Vietnamese regarding his concerns that he be able to be with the patient and baby at all times- he stated he has heard things such as nurses dropping babies, nurses not bathing babies properly, etc, and he wishes to be present to ensure that his baby is safe at all times. Lupe provided reassurance that he can be in the labor room and in the OR if is indicated and non-emergent. After speaking with patient and , she is amenable to IOL on 10/18 and is scheduled. She was instructed to call at 0830 to see if bed is available and knows that if unit is busy, IOL may be later in the day. -Discussed return precautions especially for persistent headache, vision changes and RUQ pain Debra Alexander MD
[2025-10-19] VITALS (80 sets, daily range): BP systolic 125–183; BP diastolic 71–108; PULSE 78–114; RESP 17–34; TEMP 36.7–37; O2SAT 96–100; BMI 38.7
[2025-10-19 10:53] LABS: Basophils # (Auto) 0.0 Thou/mm3 (0.0-0.2); Basophils % (Auto) 0 % (0-2.5); Eosinophils # (Auto) 0.1 Thou/mm3 (0.0-0.5); Eosinophils % (Auto) 1 % (0-10); Hematocrit 31.1 % (36.0-46.0); Hemoglobin 10.7 g/dL (12.0-16.0); Immature Granulocytes Auto 0.05 Thou/mm3 (0.00-0.00); Lymphocytes # (Auto) 1.2 Thou/mm3 (1.0-4.8); Lymphocytes % (Auto) 14 % (10-50); Mean Corpuscular HGB Conc 34.4 g/dl (31.0-37.0); Mean Corpuscular Hemoglobin 30.9 pg (25.0-35.0); Mean Corpuscular Volume 90 fL (80-100); Monocytes # (Auto) 0.4 Thou/mm3 (0.0-0.8); Monocytes % (Auto) 4 % (0-12); Neutrophils # (Auto) 6.9 Thou/mm3 (1.8-7.7); Neutrophils % (Auto) 81 % (37-80); Nucleated Red Blood Cell # 0.00 Thou/mm3 (0.00-0.00); Nucleated Red Blood Cell % 0 /100 WBC (0); Platelet Count 239 Thou/mm3 (140-440); RDW Standard Deviation 45.8 fL (36.4-46.3); Red Blood Count 3.46 Miln/mm3 (4.00-5.20); White Blood Count 8.5 Thou/mm3 (3.6-11.0)
--- NOTE | 2025-10-19 10:53 | XR_ITS ---
Examination: Complete OB ultrasound greater than 14 weeks Date and time of exam: October 19, 2025, 1126 hours INDICATIONS: -induced hypertension, labor evaluation preop induction today Findings: Viable intrauterine single fetus with single amniotic sac presentation transverse head right upper abdomen feet left upper abdomen Cardiac motion 148 bpm Placenta anterior grade 1 Umbilical cord insertion seen Amniotic fluid index 17 cm Cervix 4.1 cm Ovaries obscured by the fetus Composite estimated gestational age based on BPD, head circumference, abdominal circumference, femur length is 36 weeks 4 days Estimated weight 3149 g. Survey of intracranial anatomy, spinal anatomy, abdominal anatomy, four-chamber heart performed with no abnormalities identified. Impression: Viable intrauterine gestation in transverse presentation.
[2025-10-19 11:10] LABS: Syphilis Nonreactive (Nonreactive)
[2025-10-19 11:49] LABS: Collection Type, Urine Clean Catch
[2025-10-19 12:05] LABS: INR 1.0 (0.9-1.3); Partial Thromboplastin Time 24.7 Seconds (22.0-36.0); Prothrombin Time 10.2 Seconds (9.0-12.2)
[2025-10-19 12:09] LABS: Bacteria,Urine 3+; Bilirubin,Urine Negative (Negative); Blood,Urine 1+ (Negative); Clarity,Urine Turbid (Clear/Hazy); Color,Urine Yellow (Lt Yel-Yel); Glucose, Urine Negative (Negative); Granular Casts,Urine < 1 /hpf (0-1); Ketones,Urine Negative (Negative); Leukocyte Esterase,Urine Positive (Negative); Nitrite,Urine Negative (Negative); PH,Urine 6.0 (5.0-7.0); Protein,Urine 2+ (Neg - Trace); RBC,Urine 2 /hpf (0-3); Specific Gravity,Urine 1.017 (1.001-1.035); Squamous Epithelial Cell,Urine 15 /hpf (0-5); Urobilinogen,Urine Negative mg/dL (0.0-1.0); WBC,Urine 13 /hpf (0-5)
[2025-10-19 12:16] LABS: Fibrinogen 714 mg/dL (175-375)
[2025-10-19 12:20] LABS: Alanine Aminotransferase 7 U/L (10-49); Albumin, Serum 3.9 gm/dL (3.5-5.0); Albumin/Globulin Ratio 1.3 (1.2-2.2); Alkaline Phosphatase 94 U/L (46-116); Anion Gap 12 (7-16); Aspartate Amino Transferase 17 U/L (0-34); BUN/Creatinine Ratio 10 Ratio (12-20); Bilirubin,Total 0.5 mg/dL (0.3-1.2); Blood Urea Nitrogen 8 mg/dL (9-23); Calcium 9.0 mg/dL (8.3-10.6); Calcium (Corrected) 9.1 mg/dL (8.5-10.1); Carbon Dioxide 20.2 mMol/L (20.0-31.0); Chloride 108 mMol/L (98-107); Creatinine (Component) 0.8 mg/dL (0.6-1.3); Estimated Creatinine Clearance 112.3 mL/min (>60); Globulin 2.9 gm/dL (2.3-3.5); Glucose 112 mg/dL (74-106); Osmolality,Calculated 278 (275-295); Potassium 3.8 mMol/L (3.4-5.1); Sodium 140 mMol/L (136-145); Total Protein 6.8 gm/dL (5.7-8.2); Uric Acid 9.1 mg/dL (3.1-7.8); eGFR > 60 See Note
[2025-10-19 12:44] LABS: Creatinine,Random Urine 179 mg/dL (30-125); Protein Total, Random Urine > 250 mg/dL (1-14)
--- NOTE | 2025-10-19 12:45 | PD.LDHP ---
Documentation for date of: 10/19/25 OB Labor/Induct. HPI History of Present Illness Chief complaint: Induction of labor : 1 Para: 0 Living children: 0 Date of last menstrual period: 01/31/25 YA: 11/07/25 Gestational age based on last menstrual period: 39 History of present illness: Patient is a 35-year-old 1 para 0 at 37 weeks and 2 days with estimated due date of 11/07/2025 who presented to labor and delivery triage for her scheduled induction of labor due to chronic hypertension and insulin-dependent diabetes type 2. However on presentation the fetus was noted to be transverse as confirmed through ultrasound. Patient denies any contractions or leakage of fluid or vaginal bleeding and reports good movements. She denies any other associated complaints. During she was on labetalol 100 mg 3 times daily she was on metformin 500 twice daily and on Lantus 45 units at night and lispro 12 units 3 times daily prior to meals. Patient started care with Dr. Alexandro Donald at [facility]. She subsequently transferred care to the [facility] clinic. Patient is also a cystic fibrosis carrier. Her previous records are scanned in and they were reviewed Labs Labs: Positive: Rubella Titre and Group Beta Strep, Negative: RPR, Hepatitis B, HIV, Chlamydia and Gonorrhea and Unknown: Herpes Type 1, Herpes Type 2 and Covid-19 Meds Home Medications and Allergies Home Medications ?Medication ?Instructions ?Recorded ?Confirmed ?Type aspirin 81 mg tablet 81 mg PO QDAY 09/29/25 10/19/25 History insulin glargine 100 unit/mL 45 unit subcut HS 09/29/25 10/19/25 History subcutaneous solution (Lantus U-100 Insulin) insulin lispro 100 unit/mL 12 unit subcut TID 09/29/25 10/19/25 History subcutaneous pen (Humalog KwikPen (U-100) Insulin) labetalol 100 mg tablet 100 mg PO BID 09/29/25 10/19/25 History metformin 500 mg tablet 500 mg PO BID 09/29/25 10/19/25 History Allergies Allergy/AdvReac Type Severity Reaction Status Date / Time No Known Allergies Allergy Verified 10/19/25 09:47 OB Exam Physical Exam Vital signs: Temp Pulse Resp BP Pulse Ox O2 Del Method 98.4 F 88 19 147/83 H 100 Room Air 10/19/25 09:45 10/19/25 12:36 10/19/25 09:45 10/19/25 12:36 10/19/25 12:43 10/19/25 09:45 Constitutional Constitutional: no acute distress Routine HEENT Exam Head: Present normocephalic and atraumatic Eye: Present EOMI and PERRL ENT: Present mucous membranes moist Routine Neck Exam Neck: Present supple and trachea midline Routine Cardiovascular Exam Cardiovascular: Present RRR Routine Abdominal Exam Abdominal: Present soft and normoactive bowel sounds Detailed Labor and Delivery Exam Dilation (cm): 1 Cervix position: mid station: -4 Consistency: firm Presentation: Transverse Baseline heart rate: 145 monitor accelerations: 15x15 monitor decelerations: None termite inspector variability: Average (6-10) Routine Extremities Exam Extremities: Present full ROM Routine Skin Exam Skin: Present intact, dry and warm Routine Neurological Exam Neurological: Present alert, oriented X3 and CN II-XII intact Routine Psychiatric Exam Psychiatric: Present normal affect and normal thought process OB Results Labs 10/19/25 09:58 10/19/25 09:58 Labs: Short CBC 10/19/25 Range/Units 09:58 WBC 8.5 (3.6-11.0) Thou/mm3 Hgb 10.7 L (12.0-16.0) g/dL Hct 31.1 L (36.0-46.0) % Plt Count 239 (140-440) Thou/mm3 BMP 10/19/25 09:58 Sodium 140 Potassium 3.8 Chloride 108 H Carbon Dioxide 20.2 BUN 8 L Creatinine 0.8 Glucose 112 H Calcium 9.0 Liver Function 10/19/25 Range/Units 09:58 Total Bilirubin 0.5 (0.3-1.2) mg/dL AST 17 (0-34) U/L ALT 7 L (10-49) U/L Alkaline Phosphatase 94 (46-116) U/L Albumin 3.9 (3.5-5.0) gm/dL Urine 10/19/25 Range/Units 11:00 Urine Color Yellow (Lt Yel-Yel) Urine Clarity Turbid A (Clear/Hazy) Urine pH 6.0 (5.0-7.0) Ur Specific [place] 1.017 (1.001-1.035) Urine Protein 2+ A (Neg - Trace) Urine Glucose (UA) Negative (Negative) OB Assessment & Plan Assessment and Plan (1) Rh negative status during : Status: Acute (2) Chronic hypertension affecting : Status: Acute (3) Insulin-dependent diabetes mellitus during , antepartum: Status: Acute (4) Transverse lie, antepartum: Status: Acute Assessment and plan: Patient originally presented for induction of labor but due to transverse lie will require for delivery. Patient was counseled about the transverse lie and the fact that she cannot have a vaginal delivery. She was given the opportunity to ask questions and all her questions were answered to her apparent satisfaction. Admit to inpatient status for primary low transverse IV access, CBC, type and screen, LR at 125, RPR, COVID-19 test N.p.o. from now, last oral intake was at 9 AM. GBS is positive we will start prophylaxis. Preeclampsia panel, fingerstick blood glucose every 6 hours Ancef 2 g prior to surgery start Ventura catheter to drainage SCDs for DVT prophylaxis Anesthesia to preop for spinal anesthesia Scheduled for surgery. (1) Rh negative status during Qualifiers: Trimester: third trimester Qualified Code(s): O26.893 - Other specified related conditions, third trimester; Z67.91 - Unspecified blood type, Rh negative
[2025-10-19 13:12] LABS: Glucose Estimated Average 100 mg/dL (80-131); Hemoglobin A1C 5.1 % Hgb (4.8-6.0)
[2025-10-19] MEDS: RINGERS LACTATED 1000 ML 1,000 ML 100 ML IV (16:32)
[2025-10-19] MEDS: ceFAZolin/D5W 2 GM IV 2 GM/100 ML BAG IV (17:02)
[2025-10-19] MEDS: CITRIC ACID/SODIUM CITR 15 ML UDC (BICITRA) 30 ML PO (17:03)
[2025-10-19] MEDS: FAMOTIDINE INJ 10 MG/ML VIAL 2 ML 20 MG IV (17:04)
--- NOTE | 2025-10-19 18:04 | ESOP_ITS ---
Operative Note - TECHNICAL DELIVERY MANAGER Procedure Date of procedure: 10/19/25 Procedure Performed: Primary low-transverse section Indication: 35-year-old 1 para 0 at 37 weeks and 2 days Transverse lie on ultrasound Type II DM on insulin and metformin Chronic hypertension on labetalol Post-Op diagnosis: Breech presentation of fetus Multiple uterine leiomyomas Procedure description: Informed consent was obtained. The patient was brought to the operating room and identified with two patient identifiers. She was placed in the supine position, and spinal anesthesia was administered. After confirming adequate anesthesia, the abdomen and perineum were prepped and draped in the usual sterile fashion. A Ventura catheter was inserted for continuous bladder drainage. A Pfannenstiel skin incision was made with a scalpel and carried through the subcutaneous tissue to the level of the rectus fascia. The fascia was identified, incised transversely, and dissected off the rectus muscles both superiorly and inferiorly. The rectus muscles were in the midline, and the peritoneum was entered bluntly with the surgeon?s finger and extended superiorly and inferiorly to allow exposure. An Ronal retractor was placed. The uterus was palpated and noted to have multiple leiomyomas, including fibroids on the fundus and anterior wall, making exposure of the lower uterine segment slightly more challenging. The bladder flap was developed and reflected inferiorly. A low transverse uterine incision (Christina Alexander) was made with a scalpel and extended bluntly. The amniotic membranes were ruptured, and clear fluid was expressed. The fetus was in breech presentation, and delivery was accomplished via breech extraction. The lower extremities, buttocks, torso, shoulders, and finally the head were delivered gently. The umbilical cord was double clamped and cut. The was handed off to the team. Cord gases were obtained. The placenta was delivered spontaneously. The uterine cavity was cleared of clots and membranes. Hemostasis was confirmed. The uterine incision was closed in two layers using #1 Monocryl ? the first layer in a running locked fashion, and the second layer imbricated over the first. The Ronal retractor was removed. The peritoneal cavity was irrigated and suctioned clear. The fascia was closed using 1 PDS Stratafix in a running fashion. The subcutaneous tissue was reapproximated with 2-0 Monocryl Stratafix, and the skin was closed with 4-0 Monocryl in a subcuticular fashion. Sabrina Cantor dressing was applied. The patient was cleaned, undraped, and transferred to the recovery room in stable and awake condition. She tolerated the procedure well. All sponge, lap, and instrument counts were correct ?2. Specimen: none Estimated blood loss (ml): 700 Complications: none Surgical staff Operation Date: 10/19/25 17:45 <No data on this case meets the specified criteria> Diagnosis Problem List Completed Was Problem List Reviewed/Reconciled?: Yes
--- NOTE | 2025-10-19 18:08 | PD.LDDELS ---
Data (Rose) Data : 1 Livin Delivery Data (Rose) Labor Data Induction/Augmentation Agent: None ROM date: 10/19/25 ROM time: 17:40 Amniotic membrane rupture type: Artificial Amniotic fluid description: Clear Delivery Data delivery date: 10/19/25 Benson delivery time: 17:40 Placenta delivery date: 10/19/25 Placenta delivery time: 17:41 Delivery Method Delivery method: Low Transverse Presentation: Transverse Anesthesia Type Anesthesia Type: Spinal Episiotomy Episiotomy description: None Benson Data (Rose) Data order: 1 's gender: Male Identification band number: [id number] weight (gms): 3120 g Weight (pounds): 6 lbs and 14.1 ozs length: 53.34 cm 1 minute: 8
[2025-10-19] MEDS: TRANEXAMIC ACID 1,000 MG IVPB 1,000 MG/100 ML BAG 200 MG IV (18:46)
[2025-10-19] MEDS: CARBOPROST TROMETH INJ 250 MCG/ML VIAL IM (18:54)
[2025-10-19] MEDS: DIPHENOXYLATE/ATROP SULF 1 TAB PO (18:54)
[2025-10-19] MEDS: LABETALOL 100 MG TABLET 200 MG PO (19:08)
[2025-10-19] MEDS: OXYTOCIN in NS 20 units 20 UNIT/1,000 ML BAG 125 UNIT IV (19:08)
[2025-10-19] MEDS: KETOROLAC INJ 30 MG/ML VIAL IVP (20:42)
--- NOTE | 2025-10-19 21:46 | PC.NURSE ---
Per MD Uriah gauthier to administer Insulin dose.
[2025-10-19] MEDS: INSULIN DEGLUDEC 5 UNIT/0.05 ML (PER 5 UNITS) 25 UNIT SC (21:49)
[2025-10-20] VITALS (10 sets, daily range): BP systolic 112–138; BP diastolic 71–81; PULSE 81–96; RESP 15–18; TEMP 36.8–37.2; O2SAT 96–99
[2025-10-20] MEDS: LABETALOL 100 MG TABLET 200 MG PO ×3 (03:31→20:30)
[2025-10-20] MEDS: KETOROLAC INJ 30 MG/ML VIAL IVP (03:45)
[2025-10-20] MEDS: RINGERS LACTATED 1000 ML 1,000 ML 125 ML IV (03:45)
[2025-10-20 06:16] LABS: Basophils # (Auto) 0.0 Thou/mm3 (0.0-0.2); Basophils % (Auto) 0 % (0-2.5); Eosinophils # (Auto) 0.0 Thou/mm3 (0.0-0.5); Eosinophils % (Auto) 0 % (0-10); Hematocrit 24.4 % (36.0-46.0); Immature Granulocytes Auto 0.05 Thou/mm3 (0.00-0.00); Lymphocytes # (Auto) 0.9 Thou/mm3 (1.0-4.8); Lymphocytes % (Auto) 7 % (10-50); Mean Corpuscular HGB Conc 35.7 g/dl (31.0-37.0); Mean Corpuscular Hemoglobin 32.0 pg (25.0-35.0); Mean Corpuscular Volume 90 fL (80-100); Monocytes # (Auto) 0.5 Thou/mm3 (0.0-0.8); Monocytes % (Auto) 4 % (0-12); Neutrophils # (Auto) 11.4 Thou/mm3 (1.8-7.7); Neutrophils % (Auto) 88 % (37-80); Nucleated Red Blood Cell # 0.00 Thou/mm3 (0.00-0.00); Nucleated Red Blood Cell % 0 /100 WBC (0); Platelet Count 209 Thou/mm3 (140-440); RDW Standard Deviation 44.9 fL (36.4-46.3); Red Blood Count 2.72 Miln/mm3 (4.00-5.20); White Blood Count 13.0 Thou/mm3 (3.6-11.0)
[2025-10-20 06:21] LABS: Hemoglobin 8.7 g/dL (12.0-16.0)
[2025-10-20] MEDS: DOCUSATE SOD 100 MG CAPSULE PO (08:56)
[2025-10-20] MEDS: IBUPROFEN TAB 400 MG TABLET 800 MG PO (11:35)
--- NOTE | 2025-10-20 17:06 | ESPR_ITS ---
Subjective Subjective Interval history: Patient has no/ complaints Headache no Blurry vision no Chest pain no Palpitations no Shortness of breath no Nausea or vomiting or constipation no Back pain no Dysuria no Dizziness no calf pain no She is voiding spontaneously after catheter removal yes Passing flatus yes Lochia minimal yes Exam Vital Signs Temp Pulse Resp BP Pulse Ox O2 Del Method 98.2 F 81 16 112/71 97 Room Air 10/20/25 15:23 10/20/25 15:23 10/20/25 15:23 10/20/25 15:23 10/20/25 11:30 10/20/25 15:23 Narrative Exam alert x3 chest clear CVS RRR NO thyromegaly Uterus is nontender Uterus is firm/ appropriate size Just below the umbilicus Bowel sounds present Abdomen soft no hernias noted/no CVAT Incision CDI No drainage Appropriately tender No calf tenderness Edema mild Objective Labs 10/20/25 05:18 10/19/25 09:58 Labs: Laboratory Results - last 24 hr 10/19/25 10/20/25 22:33 05:18 WBC 13.0 H D RBC 2.72 L Hgb 8.7 L D Hct 24.4 L MCV 90 MCH 32.0 MCHC 35.7 RDW Std Deviation 44.9 Plt Count 209 D Neut % (Auto) 88 H Lymph % (Auto) 7 L [place] % (Auto) 4 Eos % (Auto) 0 Baso % (Auto) 0 Neut # (Auto) 11.4 H Lymph # (Auto) 0.9 L [place] # (Auto) 0.5 Eos # (Auto) 0.0 Baso # (Auto) 0.0 Immature Gran # (Auto) 0.05 H Absolute Nucleated RBC 0.00 Immature Gran % 0 Nucleated RBC % 0 Rho(D) IG Studies Ready Maternal Bleed Negative Impressions Impression: Hb 10.7 pre op and post op is 8.7 appropriate drop Assessment & Plan Problem List (1) Rh negative status during : Problem details: waiting for Rhogam if appropriate Status: Acute (2) Chronic hypertension affecting : Problem details: on labetalol 200 mgm tid/ controlled Status: Acute (3) Transverse lie, antepartum: Problem details: POD #1 and doing well Status: Acute (4) Pre-existing diabetes mellitus affecting childbirth: Problem details: not needed Regual insulin but last received 25 units NPH at night on 10/19/2025 Status: Acute Assessment Comment Assessment comment: Routine POD #1 care and plan / anticipate discharge in am Time Spent With Patient Time: Total time spent is greater than 50% in coordination of care (as documented) at patient's floor/unit and/or counseling patient: Time with patient: less than 15 minutes
[2025-10-20] MEDS: INSULIN DEGLUDEC 5 UNIT/0.05 ML (PER 5 UNITS) 25 UNIT SC (20:37)
--- NOTE | 2025-10-20 21:00 | PC.NURSE ---
Pt has been refusing the screening for the baby. Stating that they would rather do it outpatient. NICU Nurse educated the patient.
[2025-10-21] VITALS (8 sets, daily range): BP systolic 119–149; BP diastolic 75–91; PULSE 68–95; RESP 16–20; TEMP 36.4–36.8; O2SAT 98–99
[2025-10-21] MEDS: HYDROcodone/APAP 5/325 TABLET 2 TAB PO ×3 (00:44→18:36)
[2025-10-21] MEDS: LABETALOL 100 MG TABLET 200 MG PO ×3 (04:06→18:36)
[2025-10-21] MEDS: HYDROcodone/APAP 5/325 TABLET 1 TAB PO (06:42)
[2025-10-21 06:47] LABS: Basophils # (Auto) 0.0 Thou/mm3 (0.0-0.2); Basophils % (Auto) 0 % (0-2.5); Eosinophils # (Auto) 0.1 Thou/mm3 (0.0-0.5); Eosinophils % (Auto) 1 % (0-10); Hematocrit 25.8 % (36.0-46.0); Hemoglobin 8.9 g/dL (12.0-16.0); Immature Granulocytes Auto 0.05 Thou/mm3 (0.00-0.00); Lymphocytes # (Auto) 1.4 Thou/mm3 (1.0-4.8); Lymphocytes % (Auto) 17 % (10-50); Mean Corpuscular HGB Conc 34.5 g/dl (31.0-37.0); Mean Corpuscular Hemoglobin 31.6 pg (25.0-35.0); Mean Corpuscular Volume 92 fL (80-100); Monocytes # (Auto) 0.4 Thou/mm3 (0.0-0.8); Monocytes % (Auto) 5 % (0-12); Neutrophils # (Auto) 6.6 Thou/mm3 (1.8-7.7); Neutrophils % (Auto) 77 % (37-80); Nucleated Red Blood Cell # 0.00 Thou/mm3 (0.00-0.00); Nucleated Red Blood Cell % 0 /100 WBC (0); Platelet Count 214 Thou/mm3 (140-440); RDW Standard Deviation 47.9 fL (36.4-46.3); Red Blood Count 2.82 Miln/mm3 (4.00-5.20); White Blood Count 8.5 Thou/mm3 (3.6-11.0)
[2025-10-21] MEDS: DOCUSATE SOD 100 MG CAPSULE PO (09:50)
--- NOTE | 2025-10-21 10:21 | PD.LDPPPRG ---
Subjective Subjective Interval history: The patient is a 35-year-old -0-0-1 postop day #2 status post primary section for breech presentation by Dr. Carrero. Patient delivered 10/19/2025 around 1740. Her is complicated by chronic hypertension, patient is currently on labetalol 200 mg p.o. 3 times daily. Patient was a yfi-osaguwk-kwnnancaw diabetic prior to . She did have insulin added during her . This morning she is resting comfortably in bed with her baby on her chest. The father the baby is at bedside. Patient is asking about being discharged. Of note, per her nurse, the patient is not ambulating a lot in the hallway yet. The plan will be to have the patient ambulate and reevaluate later this afternoon. Probable discharge around 46 hours to 48 hours postop. Her predelivery hemoglobin is 10.7 and her postdelivery hemoglobin is stable today postop day 2 at 8.9. Her BMI is 39 and we will send her home on Lovenox. Patient is voiding, ambulating to the restroom, tolerating a general diet, and passing flatus. Her lochia is minimal. She is breast and bottlefeeding. Exam Vital Signs Temp Pulse Resp BP Pulse Ox O2 Del Method 98.2 F 68 18 130/84 99 Room Air 10/21/25 07:30 10/21/25 09:50 10/21/25 07:30 10/21/25 09:50 10/21/25 07:30 10/21/25 07:30 Narrative Exam Patient is alert and orient x 3 in no apparent distress Fundus is firm nontender. Abdomen is obese. Incision is clean dry and intact. Extremities show no significant edema or erythema. Objective Labs 10/21/25 06:09 10/19/25 09:58 Labs: Laboratory Results - last 24 hr 10/21/25 06:09 WBC 8.5 RBC 2.82 L Hgb 8.9 L Hct 25.8 L MCV 92 MCH 31.6 MCHC 34.5 RDW Std Deviation 47.9 H Plt Count 214 Neut % (Auto) 77 Lymph % (Auto) 17 [place] % (Auto) 5 Eos % (Auto) 1 Baso % (Auto) 0 Neut # (Auto) 6.6 Lymph # (Auto) 1.4 [place] # (Auto) 0.4 Eos # (Auto) 0.1 Baso # (Auto) 0.0 Immature Gran # (Auto) 0.05 H Absolute Nucleated RBC 0.00 Immature Gran % 1 H Nucleated RBC % 0 Assessment & Plan Problem List (1) Rh negative status during : Status: Acute (2) Chronic hypertension affecting : Problem details: on labetalol 200 mgm tid/ controlled Status: Acute (3) Transverse lie, antepartum: Problem details: POD #2 and doing well Status: Acute (4) Pre-existing diabetes mellitus affecting childbirth: Problem details: Blood sugars stable. Home on metformin only. Status: Acute Plan Comment Plan Comment: Home on Metformin Time Spent With Patient Time: Total time spent is greater than 50% in coordination of care (as documented) at patient's floor/unit and/or counseling patient: Time with patient: less than 15 minutes
[2025-10-21] MEDS: FERRIC SOD GLUC INJ 125 MG in SODIUM CHLORIDE 0.9% 100 ML 110 MG IV (11:31)
--- NOTE | 2025-10-21 17:24 | PD.LDDS ---
DS: Providers Provider Date of admission: 10/19/25 09:42 Primary care physician: Layla Panda PA-C Admitting Provider: Francisco Javier Kruse MD Attending Provider on Admission: Francisco Javier Kruse MD Consults: 10/19/25 18:41 Referral Routine Comment: Attending Provider on DC: Erika Conrad MD ([facility]) Discharging Provider: Erika Conrad MD ([facility]) Anticipated date of discharge: 10/21/25 DS: Diagnosis Discharge Diagnosis (1) Transverse lie, antepartum: Status: Acute (2) Insulin-dependent diabetes mellitus during , antepartum: Status: Acute Assessment & Plan: Home on Lantus 25 u nightly and metformin 500 mg p.o. twice daily. (3) Chronic hypertension affecting : Status: Acute Assessment & Plan: Home on labetalol 200 mg p.o. 3 times daily (4) care following delivery: Status: Acute Assessment & Plan: Discharge instructions given. Pain meds called in. Problem List Completed Was Problem List Reviewed/Reconciled?: Yes Summary/Hosp Course Brief History: Patient is a 35-year-old 1 para 0 at 37 weeks and 2 days with estimated due date of 11/07/2025 who presented to labor and delivery triage for her scheduled induction of labor due to chronic hypertension and insulin-dependent diabetes type 2. However on presentation the fetus was noted to be transverse as confirmed through ultrasound. Patient denies any contractions or leakage of fluid or vaginal bleeding and reports good movements. She denies any other associated complaints. During she was on labetalol 100 mg 3 times daily she was on metformin 500 twice daily and on Lantus 45 units at night and lispro 12 units 3 times daily prior to meals. Patient started care with Dr. Alexandro Donald at [facility]. She subsequently transferred care to the [facility] clinic. Patient is also a cystic fibrosis carrier. Her previous records are scanned in and they were reviewed Patient was admitted by Dr. Kruse on 10/19/2025. Please see history and physical for further details. Hospital course: Patient underwent an uncomplicated primary low-transverse section by Dr. Kruse at approximately 5:40 PM 10/19/2025. Please see op report for further details. Peripartum Data Delivery Method: Low Transverse Episiotomy Description: None Procedures: Procedures Operation Date: 10/19/25 17:45 Actual Procedure Side Surgeon p in OB Not Applicable Francisco Javier Kruse MD complications: none Status at Discharge Cognitive/behavioral status at discharge: Patient is alert and orient x 3 in no apparent distress. Functional status at discharge: independent ambulation Overall status at discharge: patient is progressing back to baseline Time Spent with Patient Time attestation: Total time spent providing and/or coordinating discharge services: Time spent: Less than 30 minutes Specific discharge activities: No heavy lifting, intercourse, tampons, douching or swimming pools x 6 weeks. No heavy exercise x 6 weeks. Follow-up in the clinic in 1 to 2 weeks for a wound check, blood pressure check and to review blood sugar logs. Exam Vital Signs Temp Pulse Resp BP Pulse Ox O2 Del Method 97.6 F 95 20 132/81 H 98 Room Air 10/21/25 16:00 10/21/25 16:00 10/21/25 16:00 10/21/25 16:00 10/21/25 16:00 10/21/25 16:00 Narrative Exam Patient is alert and orient x 3 no apparent distress Fundus is firm at umbilicus nontender Incision is clean dry and intact Extremities show no significant edema or erythema. Discharge Plan Plan Patient Disposition: HOME (Self Care) Disposition Comment: Stable Patient condition on transfer: Stable Prescriptions/Referrals Prescriptions/Med Rec: New acetaminophen 325 mg Tablet 650 mg PO Q6HR PRN (Reason: Patient rated pain of 3) Qty: 60 0RF hydrocodone-acetaminophen 5-325 mg Tablet 2 tab PO Q6HR MDD 4 PRN (Reason: Patient rated pain 9 to 10) Qty: 25 0RF ibuprofen 400 mg Tablet 800 mg PO Q8HR PRN (Reason: Pain Scale 4-6 (Moderate) Qty: 60 0RF docusate sodium 100 mg Capsule 100 mg PO QDAY Qty: 30 0RF labetalol 100 mg Tablet 200 mg PO Q8H Qty: 60 0RF enoxaparin [Lovenox] 40 mg/0.4 mL syringe 40 mg subcut Q24H Qty: 4 4RF Continued metformin 500 mg tablet 500 mg PO BID Changed insulin glargine [Lantus U-100 Insulin] 100 unit/mL solution 25 unit subcut HS 60 Days Qty: 15 0RF Discontinued aspirin 81 mg tablet 81 mg PO QDAY labetalol 100 mg tablet 100 mg PO BID insulin lispro [Humalog KwikPen Insulin] 100 unit/mL insulin pen 12 unit subcut TID Referrals: Layla Panda PA-C [Primary Care Provider] Patient/Caregiver Discharge Instructions Discharge Activity: activity as tolerated Other Discharge Activity Instructions:: No heavy lifting x 6 weeks. No intercourse, tampons, douching, bathtubs, or swimming pools x 6 weeks. No heavy exercise x 6 weeks. Walk often. Other Discharge Diet Instructions: Diabetic diet Education Materials: Rh-Negative Screening, What Is Gestational Diabetes?, : Caring for Yourself, C Section Dc, Change Expect Parents Print Language: [place] Irish Activity Restrictions/Additional Instructions: follow up in 1 week Stand Alone Forms: Mackenzie Award Info., Patient Portal Info Letter Vaccines Vaccines Given During Stay: Rhogam Discharge Order Discharge Orders: Discharge (Routine); Ordered 10/21/25 Ordered By: Erika Conrad ([facility]) Planned Discharge Date 10/21/25 (1) Transverse lie, antepartum Qualifiers: Fetus number: single or unspecified fetus Qualified Code(s): O32.2XX0 - Maternal care for transverse and oblique lie, not applicable or unspecified
== END 2025-10-21 19:03 | disposition home or self-care (01) | DRG 540 ==
LOC: S4SX 16:13 → S4NX 17:49
PROVIDERS: Obstetrics & Gynecology; Admitting Provider Obstetrics & Gynecology; PCP Specialist; Visit Provider Obstetrics & Gynecology
PROC: 10D00Z1 Extraction of Products of Conception, Low, Open Approach (ICD-10-PCS; CPT 59514; principal; 2025-10-19 17:30)
DX: O32.1XX0 Maternal care for breech presentation, not applicable or unspecified (principal); O24.92 Unspecified diabetes mellitus in childbirth; D25.9 Leiomyoma of uterus, unspecified; Z3A.37 37 weeks gestation of pregnancy; O34.13 Maternal care for benign tumor of corpus uteri, third trimester; Z37.0 Single live birth; O10.92 Unspecified pre-existing hypertension complicating childbirth; Z14.1 Cystic fibrosis carrier; Z67.91 Unspecified blood type, Rh negative; Z79.4 Long term (current) use of insulin; Z79.84 Long term (current) use of oral hypoglycemic drugs; Z53.29 Procedure and treatment not carried out because of patient's decision for other reasons
CPT/HCPCS: 36415; 59409; 76805; 80053; 81001; 82570; 83036; 84156; 84550; 85025; 85384; 85461; 85610; 85730; 86780; 86850; 86870; 86900; 86901; 94762; A4217; A4314; A4649; C1765; J0689; J1100; J1815; J1885; J1920; J2274; J2371; J2405; J2590; J2790; J2916; J3010; J3490; J7050; J7120; A9270; J1805; J2270

== ENCOUNTER 2025-11-11 11:36 | Outpatient (AMB) | payer MEDICAID, SELFPAY ==
[2025-11-11 11:43] VITALS: BP 130/85; PULSE 84; RESP 18; TEMP 36.2; O2SAT 98
--- NOTE | 2025-11-11 11:43 | AMBOBPPN_ITS ---
Vital Signs 11/11/25 11:43 Weight 88.677 kg Weight Measurement Method Standing Scale BP 130/85 H Blood Pressure Source Automatic Cuff Blood Pressure Location Left Upper Arm Position Sitting Respiration 18 Pulse 84 Pulse Source Monitor Temp 97.2 F Temp Source Oral Pulse Oximetry (%) 98 Oxygen Delivery Method Room Air Allergies/Home Meds Allergies & Medications Allergies No Known Allergies Allergy (Verified 11/11/25 11:44) Medication Reconciliation metformin 500 mg tablet 500 mg PO BID 09/29/25 [History Confirmed 11/11/25] acetaminophen 325 mg tablet 650 mg (2 x 325 mg) PO Q6HR PRN Patient rated pain of 3 #60 tabs 10/21/25 [Rx Confirmed 11/11/25] docusate sodium 100 mg capsule 100 mg PO QDAY #30 caps 10/21/25 [Rx Confirmed 11/11/25] enoxaparin 40 mg/0.4 mL subcutaneous syringe (Lovenox) 40 mg (0.4 mL) subcut Q24H #4 mL 10/21/25 [Rx Confirmed 11/11/25] ibuprofen 400 mg tablet 800 mg (2 x 400 mg) PO Q8HR PRN Pain Scale 4-6 (Moderate #60 tabs 10/21/25 [Rx Confirmed 11/11/25] labetalol 100 mg tablet 200 mg (2 x 100 mg) PO Q8H #60 tabs 10/21/25 [Rx Confirmed 11/11/25] Intake Visit Data Collection New Patient or Established: Established Patient (seen at [facility] within 3 years) Reason for Visit:: PP Seen by Clinical Staff ONLY (RN/MA): No Seamstress Fitter Required: No Do You Feel Safe at Home: Yes Authorities Contacted: N/A PCP or OBGYN visit in last 3 months: Yes Date of Last PCP or OBGYN visit: 10/21/25 Hx Now: Yes Are you currently on any form of Control: No Pain Present Currently: No Pain Scale Used: Rodriguez-Rincon/Numerical Pain scale:: 0 Smoking Status Smoking Status: Never smoker Immunizations Flu Vaccine in the Last 12 Months: No Flu Vaccine 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: Past Medical History Past Medical History: No Hx Neurological Disorders, No Hx Hyperthyroidism, Yes Hx Cardiac Disorders, Yes Hx Hypertension, No Hx Cancer, Yes Hx Blood Disorders, Yes Hx Anemia, Yes Hx Gastrointestinal Disorders, No Hx Renal Disease, No Hx Diabetes Mellitus Type 1 and Yes Hx Diabetes Mellitus Type 2 (2022) Questionnaires Covid-19 Vaccine Questionnaire Has patient been vacinated for Covid-19 Have you been vacinated for Covid-19: No Social History Living Situation History Lives With: Family Housing: House Tobacco History Smoking Status: Never smoker Second Hand Smoke Exposure: No Alcohol History Alcohol Intake: Never Domestic Abuse History Do You Feel Safe at Home: Yes EPDS - PP Depression Screening [place] Pospartum Depression Screen I have been able to laugh and see the funny side of things: (0) As much as I always could I have looked forward with enjoyment to things: (0) As much as I ever did I have blamed myself unnecessarily when things went wrong: (0) No, never I have been anxious or worried for no good reason: (0) No, not at all I have felt scared or panicky for no very good reason: (0) No, not at all Things have been getting on top of me: (0) No, I have been coping as well as ever I have been so unhappy that I have had difficulty sleeping: (0) No, not at all I have felt sad or miserable: (0) No, not at all I have been so unhappy that I have been crying: (0) No, never The thought of harming myself has occurred to me: (0) Never Total Score: EPDS Score: Referral is indicated for score of 9 or more, suicidal, or if provider believes patient is depressed regardless of score.: 0 EPDS completed yes Care OB Visit Log OB Flowsheet Initial Weight: Not Recorded Date -?-?-?-?-?-?-?-?-?-?-?-?- EGA Weight BP Alb Glu CTX Pres Fundal ht FHR Mov Dilation Station Effacement Hx Notes Visit Note 09/29/25 -?-?-?-?-?-?-?-?-?-?-?-?- 34w 3d 96.729 kg 129/84 absent cephalic 34 145 active At 34 weeks 5 days. Patient is a transfer from Dr. Urbina's office with records. Patient has a history of hypertension on labetalol 100 3 times daily. And she also has type 2 diabetes. She uses insulin to control her sugars. She is using 12 units after each meal. And then she has a longer acting that she is taking 45 units each night before bed. She reports that she is trying to keep her sugars under control with diet and her insulin. The fasting blood sugars she said are usually below 100 but she does have fastings that are over 100 as well. And then her postprandial sugars after meals about 75% are at goal. Reports movement. Denies contractions. Denies leaking. Denies bleeding. And fetus is active Discussed preter m labor precautions and kick count twice a day. I reviewed again GDM diet with patient importance of complying. I talked her about walking 40 minutes a day and 10 minutes after each meal. She is to continue her prenatals and her iron. We discussed iron foods with the patient. And I talked about her sugars. To continue logging them and and bring them with her to her next appointment. Continue her insulin as directed. We scheduled a mario albertoiweekly NST BPP's. Patient scheduled with OB for management bi weekly 10/13/25 -?-?-?-?-?-?-?-?-?-?-?-?- 36w 3d 98.94 kg 147/88 occasional cephalic 36 154 active 0.5 -3 50 Patient has chronic hypertension on labetalol 100 mg 3 times daily. She has been diabetic on metformin for years but is on insulin this . 25 units nightly and 12 with each meal. She has a scheduled induction of labor 10/31/2025 to [facility]. Group B strep culture done today. YA Calculator Estimated Delivery Date Method Current WG Current Estimate 11/07/25 LMP (Certain) 40w 4d Other Estimates 11/04/25 Ultrasound #1 41w 0d 11/07/25 Ultrasound #2 40w 4d 11/07/25 Manual 40w 4d final ya: 10/14 05/07 Notes Visit Date: 10/13/25 Last Updated by: Erika Conrad (OB [facility])MD Transfer of care Dr. Donald first visit here at 34 weeks. NST BPP today. Will also check an ultrasound for size. Patient's blood pressures in the 140s over 80s so we will check preeclamptic labs over at the hospital. Today patient has no complaints specifically no contractions loss of fluid she reports good movement no visual changes no headaches. Urine dip in the office 2+ protein. Visit Date: 09/29/25 Last Updated by: Glendy Barros CNM 33 G1p). lmp: 01/31/25. EDC: 11/07/25. HX of: anemia. CHTN: labetolol 100 TID, type 2 DM On insulin. OB panel: A-/ABS- (Rhogam givn 08/19/25). 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 Procedure Date of procedure: 10/19/25 Procedure Performed: Primary low-transverse section Indication: 35-year-old 1 para 0 at 37 weeks and 2 days Transverse lie on ultrasound Type II DM on insulin and metformin Chronic hypertension on labetalol Multiple fibroids seen intraop Was or delivery considered high risk: Yes Delivery type: Gestational age at delivery (weeks): 37 Delivery date: 10/19/25 Delivering provider: Dr Kruse Delivery complications: No Is patient infant: No Is patient sexually active: No Contraception planned: not yet Review of Systems Review of Systems ROS 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: Yes Narrative Review of Systems: Patient has no complaints no Headache or blurry vision or epigastric pain No Chest pain or SOB No Palpitations No Nausea or vomiting or constipation No Back pain No Dysuria no Dizziness no calf pain / independent ambulation Lochia average yes Breast/ Bottle feeding Exam Narrative Physical exam: alert x3 chest clear CVS RRR NO thyromegaly Uterus is nontender Uterus is firm/ appropriate size Bowel sounds present Abdomen soft no hernias noted/no CVAT Incision CDI No drainage No calf tenderness Edema mild General General Appearance: alert, in no apparent distress and cooperative Office Procedures [facility] LOC & Office Proc's Nursing/Assessment Patient Status: Established Patient OB Clinic Nursing Assessment: Medication Reconciliation, Update PMH in EMR and Vital Signs OB Clinic Coordination of Care: Consent,records obtained, informed consent, Education Simp Pt/Fam, Lab and Imaging orders, Results/Orders obtained and Staff clarify orders Established Patient Charge Established Patient Point Assignment: 80 Established Patient Point Charge: EP Level 3 (80-115) Assessment & Plan Diagnosis / Problem List (1) care following delivery: Status: Acute (2) Pre-existing diabetes mellitus affecting childbirth: Status: Acute (3) Chronic hypertension affecting : Status: Acute Assessment and Plan: patient to continue 100 mgm po BID of Labetalol / follow up in 3 weeks taking metformin 500 mgm po BID and not maintaining glucose log / not checking / adv fasting and hs Blood sugar checking follow up in 3 weeks refused flu vaccine not decided on Contraception / not sexually active Care Contraception planned: not yet
== END 2025-11-11 12:25 | disposition home or self-care (01) ==
LOC: HODSOBC 11:36
PROVIDERS: PCP Specialist; Referring Provider Specialist; Supervising Provider Obstetrics & Gynecology; Visit Provider Obstetrics & Gynecology
DX: Z39.2 Encounter for routine postpartum follow-up (principal); O24.13 Pre-existing type 2 diabetes mellitus, in the puerperium; O10.93 Unspecified pre-existing hypertension complicating the puerperium; Z79.84 Long term (current) use of oral hypoglycemic drugs; Z79.899 Other long term (current) drug therapy
CPT/HCPCS: 99213; G0463